=== PATIENT | female | born 1995 | race African-American/Black ===

== ENCOUNTER 2018-04-24 18:04 | Emergency (ER) | payer MEDICAID ==
[~2018-04-24] VITALS: Ht 162.6 cm; Wt 100.0 kg
[2018-04-24] MEDS ORDERED: PHEN100C4 PO (18:09)
[2018-04-24] MEDS ORDERED: KEPP500 PO (18:09)
[2018-04-24] MEDS ORDERED: MAGNESIUM 4 G PREMIX 100 ML IV ONE (18:30)
[2018-04-24 19:12] LABS: BASOPHILS % 0.2 % (0.0-2.0); EOSINOPHILS % 0.4 % (0.0-5.0); HEMATOCRIT. 36.3 % (36.0-48.0); HEMOGLOBIN. 12.2 g/dL (12.0-16.0); LYMPHOCYTES % 20.6 % (20.0-50.0); MEAN CORPUSCULAR HEMOGLOBIN 27.9 pg (28.0-32.0); MEAN CORPUSCULAR VOLUME 83.2 fL (81.0-99.0); MONOCYTES % 3.7 % (2.0-8.0); NEUTROPHILS % 75.1 % (40.0-76.0); PLATELET 364 x1000/uL (130-400); RED BLOOD CELL COUNT 4.36 mill/uL (4.2-5.4); RED CELL DISTRIBUTION WIDTH 14.5 % (11.6-14.6)
[2018-04-24 19:13] LABS: CHLORIDE 102 mEq/L (98-107)
[2018-04-24 19:17] LABS: ETHANOL BLOOD < 10 mg/dL
[2018-04-24 19:32] LABS: HCG SCREEN POSITIVE
[2018-04-24 21:01] VITALS: BP 157/89
== END 2018-04-24 21:01 | disposition left against medical advice (07) ==
LOC: ER 18:35 → CANBEDREQ 21:21
DX: O26.892 Other specified pregnancy related conditions, second trimester (principal); G40.909 Epilepsy, unspecified, not intractable, without status epilepticus; Z3A.20 20 weeks gestation of pregnancy
CPT/HCPCS: 36415; 80053; 83615; 83735; 84550; 84703; 85025; 96374; 99284; G0482; J3475